=== PATIENT | male | born 1955 | race Caucasian/White ===

== ENCOUNTER → 2016-11-28 | Outpatient (CLI) | payer MEDICARE, OTHER ==
[~2016-11-28] MED LIST: ACETAMINOPHEN325 MG PO; ACID CONTROL150 MG PO; ANUSOL HC SUPP1 SUPP PR; ASPIR 8181 MG PO; BRILINTA90 MG PO; CALCIUM500 MG PO; CETIRIZINE HCL10 MG PO; CLARITIN 10MG T10 MG PO; CYMBALTA30 MG PO; FERROUS SULFAT325 M2 PO; FLOVENT DISKUS50 MCG; FOSAMAX70 MG PO; GARLIC OIL3 MG PO; KENALOG CR 0.0215 GM TOP; LEVAQUIN500 MG PO; LISINOPRIL10 MG PO; LYRICA300 MG PO; METOPROLOL TART25 MG PO; MULTI-VITAMIN1 EACH PO; NASACORT16.9 ML INH; NEURONTIN 400400 MG PO; NITROSTAT 0.40.4 MG SL; NIZORAL 2% CREA15 GM TOP; NORVASC 5 MG TAB5 MG PO; OLANZAPINE10 MG PO; PETROLATUM TOP; PRAVASTATIN SOD20 MG PO; SPIRIVA HANDIH18 MCG INH; SPIRIVA RESPIMAT4 GM INH; SYMBICORT 160-1 INHA INH; TESTOSTERON100 MG/ML INJ; VENTOLIN/PROVE0.5 ML INH; VITAMIN D 11000 UNIT PO; VITAMIN D1000 UNIT PO; WELLBUTRIN 100100 MG PO; WELLBUTRIN XL150 M1 PO; ZYRTEC10 M3 PO
[2016-11-28 10:05] LABS: BUN/CREATININE RATIO 12 (0-10)
== END ==
LOC: LAB 08:47
PROVIDERS: Internal Medicine Interventional Cardiology
DX: R94.7 Abnormal results of other endocrine function studies (principal); E78.5 Hyperlipidemia, unspecified; I10 Essential (primary) hypertension; I21.3 ST elevation (STEMI) myocardial infarction of unspecified site
CPT/HCPCS: 36415; 80053; 80061; 84402; 84403

== ENCOUNTER → 2020-08-17 | Outpatient (CLI) | payer MEDICARE, OTHER ==
[~2020-08-17] MED LIST changes: +OMNICEF 300 MG300 MG PO; +PREDNISONE 50 M50 MG PO; +PROAIR HFA8.5 GM INH; +TESSALON PERLE100 MG PO; +ZITHROMAX250 MG PO
== END ==
LOC: LAB 11:50
DX: I25.10 Atherosclerotic heart disease of native coronary artery without angina pectoris (principal); E78.5 Hyperlipidemia, unspecified
CPT/HCPCS: 36415; 80061

== ENCOUNTER → 2021-04-26 | Outpatient (CLI) | payer MEDICARE, OTHER ==
[2021-04-26 15:01] LABS: BUN/CREATININE RATIO 6 (0-10)
== END ==
LOC: LAB 13:22
PROVIDERS: Internal Medicine Interventional Cardiology
DX: E78.5 Hyperlipidemia, unspecified (principal); I25.10 Atherosclerotic heart disease of native coronary artery without angina pectoris; J30.9 Allergic rhinitis, unspecified; R53.83 Other fatigue; I12.9 Hypertensive chronic kidney disease with stage 1 through stage 4 chronic kidney disease, or unspecified chronic kidney disease; I10 Essential (primary) hypertension; M81.0 Age-related osteoporosis without current pathological fracture
CPT/HCPCS: 36415; 80053; 80061

== ENCOUNTER → 2021-06-06 | Outpatient (CLI) | payer MEDICARE, OTHER | LOC: HEART 5 05-30 08:00 | DX: R00.0 Tachycardia, unspecified (principal); R07.9 Chest pain, unspecified; R53.83 Other fatigue | CPT/HCPCS: 78452; 93306; A9502; J2785 ==